=== PATIENT | male | born 1990 | race Caucasian/White ===

== ENCOUNTER 2019-02-14 12:15 | Emergency (ER) | payer MEDICAID, SELFPAY ==
[2019-02-14 12:15] VITALS: BP 162/86; PULSE 76; RESP 16; TEMP 36.8; O2SAT 99; BMI 35.6
--- NOTE | 2019-02-14 13:08 | US_ITS ---
STUDY: SCROTUM ULTRASOUND REASON FOR EXAM: Male, 28 years old. Right testicular pain and swelling. TECHNIQUE: Ultrasound evaluation of the scrotum was performed with color Doppler and static hughes-scale imaging. COMPARISON: None. FINDINGS: RIGHT TESTICLE INTRATESTICULAR: There is a normal size of the right testicle. The right testicle measures 3.6 cm x 2.7 cm x 2.5 cm. There is a homogenous echotexture. There is normal arterial and normal venous vascularity. There is no demonstrated right testicular mass or cyst. EXTRATESTICULAR: The epididymis is normal in size. The epididymis head measures 1.2 cm x 0.7 cm x 1.0 cm. There is normal vascularity of the epididymis. There is a well-defined cystic structure within the epididymis, without internal echoes, consistent with an epididymal cyst. This measures 5 mm x 4 mm x 3 mm. There is no demonstrated hydrocele. There is no demonstrated varicocele. There is no demonstrated extratesticular mass or cyst. LEFT TESTICLE INTRATESTICULAR: There is a normal size of the left testicle. The left testicle measures 3.6 cm x 2.5 cm x 2.3 cm. There is a homogenous echotexture. There is normal arterial and normal venous vascularity. There is no demonstrated left testicular mass or cyst. EXTRATESTICULAR: The epididymis is normal in size. The epididymis head measures 1.1 cm x 1.4 cm x 1.2 cm. There is normal vascularity of the epididymis. There is a well-defined cystic structure within the epididymis, without internal echoes, consistent with an epididymal cyst. This measures 0.4 cm x 0.4 cm by 0.3 cm. There is a small hydrocele. There are prominent extratesticular veins consistent with a varicocele. There is no demonstrated extratesticular mass or cyst. US/Testicular with Arterial Flow IMPRESSION: Small bilateral epididymal cysts. Small left hydrocele and varicocele. Electronically Signed: Danny Leija, at 15:06 EDT , Service support ,
--- NOTE | 2019-02-14 13:12 | ED.DCSUM_ITS ---
- ER Visit Summary Date of Service: 02/14/19 Chief Complaint: Scrotal pain History of Present Illness: The patient is a 28 M no significant past medical history. Patient states he had right scrotal pain since last . Atraumatic. Denies any dysuria. No fever or chills. No prior history. No penile discharge. Physical Examination: Well-appearing young male no acute distress. Vital signs stable afebrile. HEENT exam unremarkable. Neck nontender. Lungs clear to auscultation. Heart regular rhythm no murmur. Abdomen soft nontender normal bowel sounds no peritoneal signs. External exam left testicle nontender normal position no redness or swelling. Right testicle tenderness. Right spermatic cord tender. There is fullness along the lateral aspect of the testicle and the cord that is tender. No obvious hernia. No lesions. No penile discharge. No lymphadenopathy. Moving all 4 extremities. Neurologically is awake and alert. Test Results: Urinalysis shows no acute abnormality. Testicular ultrasound shows normal epididymal cyst. Right testicle otherwise normal. Left testicle small hydrocele and varicocele. Emergency Department Course and Treatment: [place] for pain. Doing well Repeat exam he may have been right inguinal spontaneously reducible hernia. Treatment Plan: Follow up with general surgeon on-call for further evaluation for possible right inguinal hernia. Disposition: Discharge Impression: Acute right testicular and scrotal pain and swelling of uncertain etiology Rule out Possible right inguinal hernia This note was generated with [employer] dictation software. It may contain incorrect words, spelling, and punctuation that were not noted in review of the chart prior to signing ED Disposition - Plan for ED Patient: Referrals: Care Physician,No Primary [Primary Care Provider] -
[2019-02-14] MEDS: HYDROcodone Bitartrate/Apap 5/325 Tablet PO (13:25)
[2019-02-14 13:42] LABS: Bacteria 0 SEEN /hpf (None Seen); Mucous, Urine 0 SEEN /hpf (<or=2+); Red Blood Cells-Urine 0 SEEN /hpf (0-5)
[2019-02-14 13:53] LABS: Color, Urine Yellow (Yellow); Glucose, Dipstick Normal (Normal); Ketone-Dipstick 5 mg/dl (Negative); Leukocyte Esterase-Dipstick 25 /ul (Negative); Nitrite-Dipstick Negative (Negative); Occult Blood-Urine Negative /ul (Negative); Protein-Dipstick Negative (Negative); Urine Bilirubin Dipstick Negative (Negative); Urine Clarity Sl. Cloudy (Clear); Urine Urobilinogen 1 mg/dl (Normal)
[2019-02-14 14:05] LABS: Squamous Epithelial Cells - UA 0-5 SEEN /hpf (0-5); White Blood Cells 0-5 SEEN /hpf (0-5)
[2019-02-14 15:08] VITALS: BP 148/76; PULSE 87; RESP 18; O2SAT 99
--- NOTE | 2019-02-14 15:17 | ED.DEP ---
ED Disposition - Plan for ED Patient: Disposition: Home or Assisted Living Instructions: HERNIA (Inguinal, Ventral, Umbilical) Prescriptions: Hydrocodone Bitart/Apap 5-325 [[place] 5MG-325MG] 1 - 2 tab PO Q4H PRN PRN 5 Days #20 tab PRN Reason: Pain Prescription Printed Referrals: Enrike Lizarraga MD [STAFF PHYSICIAN] - As soon as possible Additional Instructions: No and/or Motrin for pain. Urine was clean. Your ultrasound was unremarkable. The pain in your right groin may be secondary to a right inguinal hernia. All up for further evaluation.
== END 2019-02-14 15:44 | disposition home or self-care (01) ==
PROVIDERS: Emergency Provider Emergency Medicine
DX: K40.90 Unilateral inguinal hernia, without obstruction or gangrene, not specified as recurrent (principal); N43.3 Hydrocele, unspecified; I86.1 Scrotal varices; Z72.0 Tobacco use
CPT/HCPCS: 76870; 81001; 93976; 99283